=== PATIENT | male | born 1980 | race African-American/Black ===

== ENCOUNTER 2018-04-27 08:54 | Emergency (ER) | payer OTHER ==
[~2018-04-27] VITALS: Ht 182.9 cm; Wt 129.3 kg
--- NOTE | ~2018-04-27 | EKG ---
[address] [address] ELECTROCARDIOGRAM REPORT Name: EUSEBIO MCCORMACKIO Room #: [facility]P [facility]ENTERGualbertoGualberto#: [id number] Admission: 04/27/18 Attend Phys: Discharge: 04/27/18 Date of : 76 Report #: [id number] THIS REPORT FOR: //name// [facility] ED Test Date: 2018-04-27 Test Time: 09:58:04 Pat Name: CARITO MCCORMACK Department: Room: Gender: Crusher Feeder: Melissa WALKER : 1980 Requested By: Cheyanne Thompson Order Number: [id number] MD: Andrea Hennessy Measurements Intervals [place] Rate: 71 P: 2 AR: 149 QRS: -11 QRSD: 95 T: -6 QT: 376 QTc: 409 Interpretive Statements Sinus rhythm Baseline wander in lead(s) I Compared to ECG 05/28/2011 14:53:20 Electronically Signed On 04-28-2018 9:43:55 CDT by Andrea Hennessy [email or web address] <ELECTRONICALLY SIGNED> By: Andrea Hennessy MD 04/28/18 0943 7 7 Andrea Hennessy MD /KARIN
[~2018-04-27 08:54] MED LIST: LOPRESSOR25 PO; NOHOMEMEDICATIONS
[2018-04-27 09:45] LABS: ABSOLUTE NEUTROPHILS 1.7 thou/uL (1.4-8.2); BASOPHILS 0.3 % (0.0-2.0); EOSINOPHILS 4.3 % (0.0-3.0); HEMOGLOBIN 15.4 gm/dL (14.0-18.0); LYMPHOCYTES 46.9 % (24.0-44.0); MCH 31.1 pg (26.0-34.0); MCHC 34.1 g/dL (28.0-37.0); MCV 91.2 fL (80.0-100.0); MONOCYTES 10.2 % (1.0-8.0); PLATELET COUNT 185 thou/uL (150-400); POLYS 38.3 % (36.0-66.0); RBC 4.93 mil/uL (4.50-6.00); RDW 13.8 % (10.5-14.5); WBC 4.5 thou/uL (4.0-11.0)
[2018-04-27 09:50] LABS: ANION GAP 4 mmol/L (7-16); BUN 11 mg/dL (7-18); CALCIUM 9.5 mg/dL (8.5-10.1); CHLORIDE 103 mmol/L (98-107); CO2 28 mmol/L (21-32); CREATININE 1.4 mg/dL (0.7-1.3); GLUCOSE 115 mg/dL (74-106); SODIUM 135 mmol/L (136-145)
[2018-04-27 09:59] LABS: ALBUMIN 3.8 g/dL (3.4-5.0); SGOT 29 U/L (15-37); SGPT 29 U/L (30-65); TOTAL BILIRUBIN 0.6 mg/dL (<0.1-1.0); TOTAL PROTEIN 7.9 g/dL (6.4-8.2); TROPONIN-I <0.06 ng/mL (<0.06)
[2018-04-27] MEDS ORDERED: LISINOPRIL10 MG PO (11:54)
[2018-04-27] MEDS ORDERED: VENTOLIN HFA 1818 GM INH (11:54)
[2018-04-27] MEDS ORDERED: PREDNISONE 20 M20 MG PO (11:54)
[2018-04-27 12:06] VITALS: BP 153/86
== END 2018-04-27 12:08 | disposition home or self-care (01) ==
LOC: ER 08:54
PROVIDERS: Nurse Practitioner Family
DX: J40 Bronchitis, not specified as acute or chronic (principal); I10 Essential (primary) hypertension; F17.210 Nicotine dependence, cigarettes, uncomplicated